=== PATIENT | male | born 1990 | race Two or more races ===

== ENCOUNTER 2024-08-27 03:51 | Emergency (ER) | payer SELFPAY | END 2024-08-27 04:24 | disposition home or self-care (01) | LOC: MW.ED 03:51 | DX: F10.129 Alcohol abuse with intoxication, unspecified (principal); I10 Essential (primary) hypertension; F17.210 Nicotine dependence, cigarettes, uncomplicated; Y90.9 Presence of alcohol in blood, level not specified | CPT/HCPCS: 99282; 99283 ==